=== PATIENT | male | born 1990 | race Caucasian/White ===

== ENCOUNTER → 2017-06-10 | Outpatient (CLI) | payer OTHER ==
[~2017-06-10] MED LIST: Naprosyn500 MG PO; OXYACE5T PO
[2017-06-10 12:03] LABS: Creatinine, Urine Random 90.8 mg/dL (27.00-270.00)
== END | disposition home or self-care (01) ==
LOC: OLS 10:12
PROVIDERS: Internal Medicine
DX: N19 Unspecified kidney failure (principal)
CPT/HCPCS: 82570; 84156

== ENCOUNTER → 2017-09-19 | Outpatient (CLI) | payer OTHER ==
[2017-09-19 13:00] LABS: Creatinine Urine 71.9 mg/dL (27.00-270.00); Protein, Urine Quantitative 83.4 mg/dL (0.0-11.9)
== END ==
LOC: LAB 12:31
PROVIDERS: Internal Medicine
DX: N18.2 Chronic kidney disease, stage 2 (mild) (principal)
CPT/HCPCS: 81050; 82570; 84156

== ENCOUNTER 2017-12-17 08:21 | Day surgery (SDC) | payer BC ==
[2017-12-17 09:58] LABS: Performing Lab SYMBIODX; Test Name KIDNEY BIIPOSY
== END 2017-12-17 11:34 | disposition home or self-care (01) ==
LOC: CT 08:21
PROVIDERS: Internal Medicine; Radiology Diagnostic Radiology
PROC: 0TB13ZX Excision of Left Kidney, Percutaneous Approach, Diagnostic (ICD-10-PCS; principal; 2017-12-17 10:00)
DX: R80.8 Other proteinuria (principal); I12.9 Hypertensive chronic kidney disease with stage 1 through stage 4 chronic kidney disease, or unspecified chronic kidney disease; N18.9 Chronic kidney disease, unspecified; N17.0 Acute kidney failure with tubular necrosis; E78.5 Hyperlipidemia, unspecified; E66.01 Morbid (severe) obesity due to excess calories; E55.9 Vitamin D deficiency, unspecified; Z79.899 Other long term (current) drug therapy; Z87.891 Personal history of nicotine dependence; Z68.39 Body mass index [BMI] 39.0-39.9, adult
CPT/HCPCS: 50200; 77012; 88329

== ENCOUNTER 2017-12-26 14:03 | Emergency (ER) | payer BC ==
[~2017-12-26] VITALS: Ht 185.4 cm; Wt 140.6 kg
== END 2017-12-26 14:41 | disposition home or self-care (01) ==
LOC: ER 14:03
DX: S60.222A Contusion of left hand, initial encounter (principal); W23.0XXA Caught, crushed, jammed, or pinched between moving objects, initial encounter; E78.00 Pure hypercholesterolemia, unspecified; F17.200 Nicotine dependence, unspecified, uncomplicated
CPT/HCPCS: 73130; 99283-25

== ENCOUNTER 2019-04-16 14:39 | Emergency (ER) | payer BC, OTHER ==
[~2019-04-16] VITALS: Ht 185.4 cm; Wt 130.6 kg
[2019-04-16 15:21] LABS: BASOPHILS ABSOLUTE AUTO 0.02 K/mm3 (0.00-0.23); BASOPHILS PERCENT AUTO 0 % (0-2); EOSINOPHILS ABSOLUTE AUTO 0.13 K/mm3 (0.00-0.68); EOSINOPHILS PERCENT AUTO 1 % (0-6); Hematocrit 46.8 % (37.0-53.0); Hemoglobin 15.2 g/dL (13.5-17.5); IMMATURE GRAN ABSOLUTE AUTO 0.03 K/mm3 (0.00-0.10); IMMATURE GRAN PERCENT AUTO 0 % (0-1); LYMPHOCYTES ABSOLUTE AUTO 1.75 K/mm3 (0.84-5.20); LYMPHOCYTES PERCENT AUTO 19 % (21-46); MONOCYTES ABSOLUTE AUTO 0.71 K/mm3 (0.16-1.47); MONOCYTES PERCENT AUTO 8 % (4-13); Mean Corpuscular HGB 27.4 pg (26.0-34.0); Mean Corpuscular HGB Conc 32.5 g/dL (31.5-36.5); Mean Corpuscular Volume 85 fL (80-100); Mean Platelet Volume 9.8 fL (9.1-12.4); NEUTROPHILS ABSOLUTE AUTO 6.39 K/mm3 (1.96-9.15); NEUTROPHILS PERCENT AUTO 71 % (41-73); Platelet Count 314 K/mm3 (150-400); RDW Coefficient Variation 14.4 % (11.7-14.2); RDW Standard Deviation 44.6 fL (35.1-46.3); Red Blood Cell Count 5.54 M/mm3 (4.30-5.90); White Blood Cell Count 9.03 K/mm3 (4.00-11.30)
[2019-04-16 15:46] LABS: Alanine Aminotransfer (ALT/SGP 41 U/L (12-78); Albumin, Blood 3.3 g/dL (3.4-5.0); Albumin/Globulin Ratio 0.7 (0.8-1.8); Alk Phos 79 U/L (50-136); Anion Gap 10 mmol/L (6-16); Aspartate Aminotrans (AST/SGOT 30 U/L (12-37); Bilirubin, Total 0.4 mg/dL (0.1-1.0); Blood Urea Nitrogen 20 mg/dL (8-24); Bun/Creatinine Ratio 18.9 (12.0-20.0); CO2, Blood 23 mmol/L (21-32); Calcium, Blood 9.1 mg/dL (8.5-10.1); Chloride, Blood 108 mmol/L (98-108); Creatinine, Blood 1.06 mg/dL (0.60-1.20); Globulin, Blood 4.5 g/dL (2.2-4.0); Glomerular Filtration Rate >60 (60-); Glucose, Blood 94 mg/dL (70-99); Potassium, Blood 4.5 mmol/L (3.5-5.5); Sodium, Blood 141 mmol/L (136-145); Total Protein, Blood 7.8 g/dL (6.4-8.2)
== END 2019-04-16 18:06 | disposition home or self-care (01) ==
LOC: ER 14:39
PROVIDERS: Physician Assistant
DX: M10.9 Gout, unspecified (principal); I10 Essential (primary) hypertension; F17.200 Nicotine dependence, unspecified, uncomplicated; Z88.6 Allergy status to analgesic agent
CPT/HCPCS: 20605; 36415; 80053; 85025; 87070; 87075; 87205; 99283-25; A9270

== ENCOUNTER 2021-03-26 09:05 | Emergency (ER) | payer BC ==
[~2021-03-26] VITALS: Ht 185.4 cm; Wt 142.4 kg
[2021-03-26] MEDS ORDERED: ROSUVASTATIN CA20 MG PO (09:17)
[2021-03-26] MEDS ORDERED: Monodox100 MG PO (09:17)
[2021-03-26] MEDS ORDERED: CEPH500 PO (09:17)
[2021-03-26] MEDS ORDERED: TELMISARTAN80 MG PO (09:18)
[2021-03-26] MEDS ORDERED: AMLODIPINE BESY10 MG PO (09:18)
[2021-03-26] MEDS ORDERED: METOPROLOL SUCC25 MG PO (09:18)
[2021-03-26 09:46] LABS: BASOPHILS ABSOLUTE AUTO 0.03 K/mm3 (0.00-0.23); BASOPHILS PERCENT AUTO 0 % (0-2); EOSINOPHILS ABSOLUTE AUTO 0.07 K/mm3 (0.00-0.68); EOSINOPHILS PERCENT AUTO 1 % (0-6); Hematocrit 44.6 % (37.0-53.0); Hemoglobin 14.7 g/dL (13.5-17.5); IMMATURE GRAN ABSOLUTE AUTO 0.05 K/mm3 (0.00-0.10); IMMATURE GRAN PERCENT AUTO 0 % (0-1); LYMPHOCYTES ABSOLUTE AUTO 1.38 K/mm3 (0.84-5.20); LYMPHOCYTES PERCENT AUTO 11 % (21-46); MONOCYTES PERCENT AUTO 11 % (4-13); Mean Corpuscular HGB 27.2 pg (26.0-34.0); Mean Corpuscular Volume 83 fL (80-100); Mean Platelet Volume 9.4 fL (9.1-12.4); NEUTROPHILS ABSOLUTE AUTO 9.57 K/mm3 (1.96-9.15); NEUTROPHILS PERCENT AUTO 77 % (41-73); Platelet Count 407 K/mm3 (150-400); RDW Coefficient Variation 14.5 % (11.7-14.2); RDW Standard Deviation 43.8 fL (35.1-46.3)
[2021-03-26 10:10] LABS: Uric Acid, Blood 9.7 mg/dL (3.5-7.2)
[2021-03-26 10:21] LABS: Bilirubin, Total 1.4 mg/dL (0.1-1.0); Bun/Creatinine Ratio 21.2 (12.0-20.0); Calcium, Blood 10.1 mg/dL (8.5-10.1); Creatinine, Blood 1.56 mg/dL (0.60-1.20); Total Protein, Blood 8.6 g/dL (6.4-8.2)
[2021-03-26 10:22] LABS: Albumin, Blood 2.5 g/dL (3.4-5.0); Albumin/Globulin Ratio 0.4 (0.8-1.8); Globulin, Blood 6.1 g/dL (2.2-4.0)
[2021-03-26] MEDS ORDERED: METPRE4DP PO (10:49)
[2021-03-26] MEDS ORDERED: OXYC5 PO (10:49)
== END 2021-03-26 11:14 | disposition home or self-care (01) ==
LOC: ER 09:05
PROVIDERS: Emergency Medicine
DX: M10.9 Gout, unspecified (principal); F17.200 Nicotine dependence, unspecified, uncomplicated; I10 Essential (primary) hypertension; E78.00 Pure hypercholesterolemia, unspecified; Z88.6 Allergy status to analgesic agent; Z79.899 Other long term (current) drug therapy
CPT/HCPCS: 80053; 84550; 85025; J1100; J1170; J2405

== ENCOUNTER 2021-04-09 10:02 | Inpatient (IN) | payer BC ==
[~2021-04-09] VITALS: Ht 185.4 cm; Wt 133.0 kg
[~2021-04-09 10:02] MED LIST changes: +AMLODIPINE BESY10 MG PO; +CEPH500 PO; +METOPROLOL SUCC25 MG PO; +METPRE4DP PO; +Monodox100 MG PO; +OXYC5 PO; +ROSUVASTATIN CA20 MG PO; +TELMISARTAN80 MG PO
[2021-04-09 12:38] LABS: BASOPHILS ABSOLUTE AUTO 0.03 K/mm3 (0.00-0.23); BASOPHILS PERCENT AUTO 0 % (0-2); EOSINOPHILS ABSOLUTE AUTO 0.02 K/mm3 (0.00-0.68); EOSINOPHILS PERCENT AUTO 0 % (0-6); Hematocrit 46.6 % (37.0-53.0); Hemoglobin 15.1 g/dL (13.5-17.5); IMMATURE GRAN ABSOLUTE AUTO 0.09 K/mm3 (0.00-0.10); IMMATURE GRAN PERCENT AUTO 1 % (0-1); LYMPHOCYTES ABSOLUTE AUTO 1.35 K/mm3 (0.84-5.20); LYMPHOCYTES PERCENT AUTO 8 % (21-46); MONOCYTES ABSOLUTE AUTO 1.51 K/mm3 (0.16-1.47); MONOCYTES PERCENT AUTO 9 % (4-13); Mean Corpuscular HGB 27.1 pg (26.0-34.0); Mean Corpuscular HGB Conc 32.4 g/dL (31.5-36.5); Mean Corpuscular Volume 84 fL (80-100); NEUTROPHILS ABSOLUTE AUTO 13.93 K/mm3 (1.96-9.15); NEUTROPHILS PERCENT AUTO 82 % (41-73); Platelet Count 335 K/mm3 (150-400); RDW Standard Deviation 42.8 fL (35.1-46.3); Red Blood Cell Count 5.57 M/mm3 (4.30-5.90); White Blood Cell Count 16.93 K/mm3 (4.00-11.30)
[2021-04-09 13:09] LABS: Alanine Aminotransfer (ALT/SGP 46 U/L (12-78); Albumin, Blood 2.9 g/dL (3.4-5.0); Albumin/Globulin Ratio 0.5 (0.8-1.8); Alk Phos 111 U/L (50-136); Anion Gap 7 mmol/L (6-16); Aspartate Aminotrans (AST/SGOT 16 U/L (12-37); Bilirubin, Total 1.7 mg/dL (0.1-1.0); Blood Urea Nitrogen 17 mg/dL (8-24); CO2, Blood 25 mmol/L (21-32); Calcium, Blood 9.8 mg/dL (8.5-10.1); Chloride, Blood 101 mmol/L (98-108); Creatinine, Blood 1.42 mg/dL (0.60-1.20); Globulin, Blood 5.5 g/dL (2.2-4.0); Glomerular Filtration Rate 57 (60-); Glucose, Blood 117 mg/dL (70-99); Potassium, Blood 4.4 mmol/L (3.5-5.5); Sodium, Blood 133 mmol/L (136-145); Total Protein, Blood 8.4 g/dL (6.4-8.2)
[2021-04-09 13:32] LABS: C-REACTIVE PROTEIN, EXT RANGE >19.000 mg/dL (0.000-0.300)
[2021-04-09 14:10] LABS: Glucose, Body Fluid 32 mg/dL; Protein, Body Fluid 5.5 g/dL
[2021-04-09 14:20] LABS: BODY FLUID RBC 0.002 M/mm3 (0-0)
[2021-04-09 15:13] LABS: RBC Count, Synovial Fluid 2000 /mm3 (0-0)
[2021-04-09 15:14] LABS: Appearance, Synovial Fluid Cloudy (Clear); Color, Synovial Fluid Yellow (None-P Yel); WBC Count, Synovial Fluid 41830 /mm3 (0-180)
[2021-04-09 16:17] LABS: Lymphs, Synovial Fluid 1 % (0-15); Monocytes/Macrophages, Synovia 6 % (0-65); Neutrophils, Synovial Fluid 93 % (0-24)
[2021-04-09 16:28] LABS: Body Fluid Crystals POS (NEGATIVE)
--- NOTE | 2021-04-09 20:57 | NUR ---
transfer report from [employer] [facility]ral on 31 year old Male being admitted with LT Knee septic joint. Tapped in ER for 35 ml fluids with synovial fluid analysis in progress. Remote hx of Strep B Strep C . Gout & hypertension hx asked for recheck of vital signs due to elevated pulse & BP on presentation to ER. Await admission, consulted by ortho DR Thomas who plans I & D LT knee. HX of 2 previous drainage of lt knee reported. Covid 19 swab pending per preprocedure routine.
[2021-04-09 22:03] LABS: Influenza A, PCR NEGATIVE (NEGATIVE); Influenza B, PCR NEGATIVE (NEGATIVE); Resp Syncytial Virus, PCR NEGATIVE (NEGATIVE); SARS-Cov-2 (COVID-19) PCR, MMC NEGATIVE (NEGATIVE)
[2021-04-09] MEDS ORDERED: VITAMIN D5000 UNIT PO (22:28)
[2021-04-09] MEDS ORDERED: TELM80 PO (22:54)
--- NOTE | 2021-04-09 23:41 | NUR ---
dr lewis CALLED pt HAS TEMPORAL T 101.2 ORAL 100.2 TACHYCARDIA 127 P & ELEVATED bp. pt HAD NO ORDERS FOR TYLENOL OR HOME ANTIHYPERTENSIVES .DR yun Solis SAYS ORDER TYL & HOME OXCODONE & HOME RX STARTED 2 HOME MEDS TYL & OXYCODONE 5 MG FOR PAIN LT LE 11/10. bLOOD CULTURES X 2 DRAN FOR pt WITH ELEVATED t WITH SEPTIC LEFT KNEE. dr Baldwin CONSULTED IN er FOR ORTHO . PT says he is to be NPO at midnight for surgical intervention. Rocephin given in ER & vanco just finuishing infusion. Med floor NS bolus pending finishing vanco.
[2021-04-10] MEDS ORDERED: ROSUVASTATIN CA10 MG (03:23)
--- NOTE | 2021-04-10 03:37 | NUR ---
PT admitted with septic lt knee temporal temp 101.2, pulse 127 BP 153/93 on presentation from ER. HAd rocephin in ER & ER sent vancomycin with PT at 2116. PT home meds reviewed & DR Weinstein shank boner oks home med use tylenol 650 mg po q 4 hours & oxcodone 5 mg. Unable to order telmisartan nonformulary rx & cholesterol lowering rx. Pharmacy [facility] gives nonformulary pharmacy subsitute & clears choles. lowering rx so will start those 2 in AM. 1 l IV fluid bolus completed & vancomyicin per pharmacy. PT see's DR Little for ongoing renal issues & also has elevated bilirubin 1.7. NSAIDS adversly effect renal function. PT npo at midnight for lt Knee surgical intervention. LT knee tapped in ER for 35 ml & fluid analysis in process. Blood cultures x 2 drawn. Medicated for lt leg knee pain with 650 mg tylenol & [address] Tomlin to see PT around midnight oks home med use theraputic substitution from pharmacy.
[2021-04-10 05:05] LABS: BASOPHILS ABSOLUTE AUTO 0.02 K/mm3 (0.00-0.23); BASOPHILS PERCENT AUTO 0 % (0-2); EOSINOPHILS ABSOLUTE AUTO 0.02 K/mm3 (0.00-0.68); EOSINOPHILS PERCENT AUTO 0 % (0-6); Hematocrit 42.4 % (37.0-53.0); Hemoglobin 13.6 g/dL (13.5-17.5); IMMATURE GRAN ABSOLUTE AUTO 0.08 K/mm3 (0.00-0.10); IMMATURE GRAN PERCENT AUTO 1 % (0-1); LYMPHOCYTES ABSOLUTE AUTO 0.83 K/mm3 (0.84-5.20); LYMPHOCYTES PERCENT AUTO 6 % (21-46); MONOCYTES ABSOLUTE AUTO 0.56 K/mm3 (0.16-1.47); MONOCYTES PERCENT AUTO 4 % (4-13); Mean Corpuscular HGB 27.1 pg (26.0-34.0); Mean Corpuscular HGB Conc 32.1 g/dL (31.5-36.5); Mean Corpuscular Volume 85 fL (80-100); Mean Platelet Volume 9.4 fL (9.1-12.4); NEUTROPHILS ABSOLUTE AUTO 12.76 K/mm3 (1.96-9.15); NEUTROPHILS PERCENT AUTO 90 % (41-73); Platelet Count 281 K/mm3 (150-400); RDW Coefficient Variation 14.2 % (11.7-14.2); RDW Standard Deviation 43.8 fL (35.1-46.3); Red Blood Cell Count 5.02 M/mm3 (4.30-5.90); White Blood Cell Count 14.27 K/mm3 (4.00-11.30)
[2021-04-10 06:15] LABS: Albumin, Blood 2.5 g/dL (3.4-5.0); Albumin/Globulin Ratio 0.6 (0.8-1.8); Bilirubin, Total 0.9 mg/dL (0.1-1.0); Bun/Creatinine Ratio 13.9 (12.0-20.0); Calcium, Blood 8.8 mg/dL (8.5-10.1); Creatinine, Blood 1.44 mg/dL (0.60-1.20); Globulin, Blood 4.1 g/dL (2.2-4.0); Potassium, Blood 4.9 mmol/L (3.5-5.5); Total Protein, Blood 6.6 g/dL (6.4-8.2)
--- NOTE | 2021-04-10 14:07 | NUR ---
THE PATIENT WAS BROUGHT TO DAY SURGERY FOR HIS PROCEDURE. Ambulatory in Day Surgery Surgical site prepped with 2% Chlorhexidine cloth wipe. Lungs clear T/O to Auscultation. History, Chart, Medications and Allergies reviewed before start of procedure.Patient confirms NPO status and agrees with scheduled surgery. Pre-Op teaching done. Pt verbalizes understanding.
[2021-04-10 14:15] LABS: Anion Gap 8 mmol/L (6-16); Blood Urea Nitrogen 20 mg/dL (8-24); Bun/Creatinine Ratio 16.8 (12.0-20.0); CO2, Blood 25 mmol/L (21-32); Calcium, Blood 9.1 mg/dL (8.5-10.1); Chloride, Blood 109 mmol/L (98-108); Creatinine, Blood 1.19 mg/dL (0.60-1.20); Glomerular Filtration Rate >60 (60-); Glucose, Blood 144 mg/dL (70-99); Potassium, Blood 4.5 mmol/L (3.5-5.5); Sodium, Blood 142 mmol/L (136-145)
--- NOTE | 2021-04-10 18:21 | NUR ---
SHIFT SUMMARY PT SEEN BY DR. LANDA, ORTHO, THIS AFTERNOON AND WENT TO OR FOR I AND D. RETURNED WITH BEKAH WRAP APPLIED TO KNEE. REPORTS SOME BURNING TO AREA BUT SAID HE DIDN'T WANT PAIN MEDS AT THE TIME. AWAKE AND ALERT ON RETURN FROM SURGERY REPORTING BEING VERY HUNGRY. SANDWICH GIVEN AND EATEN WITH NO ISSUE. POSITIVE ATTITUDE THROUGH DAY.
[2021-04-10 21:22] LABS: Vancomycin, Trough 19.7 ug/mL (5.0-10.0)
--- NOTE | 2021-04-11 05:31 | NUR ---
PT IS A/OX4. PT UNDERWENT AN I/D ON 04/10. LF KNEE IN BEKAH WRAP. AND NO C/O OF PAIN. WAITING ON CULTURE FROM KNEE ASPIRATION AND PT WILL DC PENDING RESULTS. NO GROWTH 1ST DAY. PT DID NOT GET OOB ON NOC SHIFT, BUT USES THE URINAL APPROPRIATELY. NEW IV IN HIS RT FA 04/10 NOC SHIFT.
[2021-04-11 07:21] LABS: Anion Gap 6 mmol/L (6-16); Blood Urea Nitrogen 25 mg/dL (8-24); Bun/Creatinine Ratio 21.6 (12.0-20.0); CO2, Blood 25 mmol/L (21-32); Calcium, Blood 8.8 mg/dL (8.5-10.1); Chloride, Blood 113 mmol/L (98-108); Creatinine, Blood 1.16 mg/dL (0.60-1.20); Glomerular Filtration Rate >60 (60-); Glucose, Blood 147 mg/dL (70-99); Sodium, Blood 144 mmol/L (136-145)
[2021-04-11] MEDS ORDERED: PRED20 PO (12:19)
[2021-04-11] MEDS ORDERED: ALLO100 PO (12:19)
[2021-04-11 12:43] LABS: Vancomycin, Trough 12.7 ug/mL (5.0-10.0)
--- NOTE | 2021-04-11 14:56 | NUR ---
DISCHARGE PT DISCHARGED TO HOME. IV REMOVED AND DISCHARGE PAPERWORK/EDUCATIONS GONE THROUGH WITH PT PRIOR TO DISCHARGE. [facility]AL BELONGINGS.
--- NOTE | 2021-04-12 07:46 | NUR ---
04/12/21 0746 Jessica Post VERIFICATIONS: EDIT CHART.
== END 2021-04-11 14:50 | disposition home or self-care (01) | DRG 549 ==
LOC: ER 10:02 → MEDS 19:50
PROVIDERS: Emergency Medicine; Internal Medicine; Physician Assistant; Student in an Organized Health Care Education/Training Program; ADMIT Orthopaedic Surgery
PROC: 0S9D3ZX Drainage of Left Knee Joint, Percutaneous Approach, Diagnostic (ICD-10-PCS; principal; 2021-04-09)
PROC: 0S9D4ZZ Drainage of Left Knee Joint, Percutaneous Endoscopic Approach (ICD-10-PCS; 2021-04-10)
PROC: 3E02340 Introduction of Influenza Vaccine into Muscle, Percutaneous Approach (ICD-10-PCS; 2021-04-10)
DX: M00.9 Pyogenic arthritis, unspecified (principal); N17.9 Acute kidney failure, unspecified; Z20.822 Contact with and (suspected) exposure to COVID-19; R73.9 Hyperglycemia, unspecified; F10.10 Alcohol abuse, uncomplicated; M10.9 Gout, unspecified; I10 Essential (primary) hypertension; E78.5 Hyperlipidemia, unspecified; F17.210 Nicotine dependence, cigarettes, uncomplicated; Z23 Encounter for immunization; Z98.890 Other specified postprocedural states; Z88.6 Allergy status to analgesic agent
CPT/HCPCS: 0241U; 20610; 36415; 73562-LT; 80048; 80053; 80202; 82945; 83036; 84157; 85025; 85651; 86140; 87040; 87070; 87075; 87205; 89051; 89060; 90686; 94760; 96365; 99283-25; A9270; G0008; J0171; J0696; J1100; J2001; J2250; J2405; J2704; J2930; J3010; J3370; J7030; J7050; J7120

== ENCOUNTER → 2024-07-21 | Outpatient (CLI) | payer OTHER ==
[~2024-07-21] MED LIST changes: +ALLO100 PO; +PRED20 PO; +ROSUVASTATIN CA10 MG; +TELM80 PO; +VITAMIN D5000 UNIT PO
== END ==
LOC: LAB 13:30 → LAB SHORT 13:30
DX: R30.0 Dysuria (principal)
CPT/HCPCS: 87086

== ENCOUNTER 2024-12-02 12:44 | Emergency (ER) | payer OTHER ==
[~2024-12-02] VITALS: Ht 185.4 cm; Wt 124.7 kg
[2024-12-02 13:55] VITALS: BP 117/87
[2024-12-02 16:10] LABS: BASOPHILS ABSOLUTE AUTO 0.04 K/mm3 (0.00-0.23); BASOPHILS PERCENT AUTO 0 % (0-2); EOSINOPHILS ABSOLUTE AUTO 0.06 K/mm3 (0.00-0.68); EOSINOPHILS PERCENT AUTO 1 % (0-6); Hematocrit 50.1 % (37.0-53.0); Hemoglobin 16.8 g/dL (13.5-17.5); IMMATURE GRAN ABSOLUTE AUTO 0.04 K/mm3 (0.00-0.10); IMMATURE GRAN PERCENT AUTO 0 % (0-1); LYMPHOCYTES ABSOLUTE AUTO 1.42 K/mm3 (0.84-5.20); LYMPHOCYTES PERCENT AUTO 12 % (21-46); MONOCYTES ABSOLUTE AUTO 1.11 K/mm3 (0.16-1.47); MONOCYTES PERCENT AUTO 9 % (4-13); Mean Corpuscular HGB Conc 33.5 g/dL (31.5-36.5); Mean Corpuscular Volume 83 fL (80-100); NEUTROPHILS ABSOLUTE AUTO 9.37 K/mm3 (1.96-9.15); NEUTROPHILS PERCENT AUTO 78 % (41-73); NRBC ABSOLUTE 0.00 K/mm3 (0.00-0.02); NRBC Auto 0.0 /100 WBC (0.0-0.2); Platelet Count 248 K/mm3 (150-400); RDW Coefficient Variation 13.3 % (11.7-14.2); RDW Standard Deviation 40.4 fL (35.1-46.3)
[2024-12-02 16:25] LABS: Source, Urine Clean Catch
[2024-12-02 16:32] LABS: Bilirubin, Urine Neg (Neg); Color, Urine Amber (P-Yellow); Glucose Qualitative, Urine Neg (Neg); Ketones, Urine Neg (Neg); Leukocyte Esterase, Urine Neg (Neg); Protein, Urine 4+ (Neg); Specific Gravity, Urine 1.015 (1.003-1.022); Urobilinogen, Urine NORM (Normal)
[2024-12-02 16:39] LABS: Alanine Aminotransfer (ALT/SGP 27.0 U/L (12-78); Albumin, Blood 2.9 g/dL (3.4-5.0); Albumin/Globulin Ratio 0.6 (0.8-1.8); Anion Gap 6.0 mmol/L (3-11); Aspartate Aminotrans (AST/SGOT 15.0 U/L (12-37); Bilirubin, Total 1.5 mg/dL (0.1-1.0); Blood Urea Nitrogen 19.0 mg/dL (8-24); CO2, Blood 26.0 mmol/L (21-32); Calcium, Blood 9.3 mg/dL (8.5-10.1); Chloride, Blood 102.0 mmol/L (98-108); Creatinine, Blood 1.39 mg/dL (0.60-1.20); Globulin, Blood 4.5 g/dL (2.2-4.0); Glucose, Blood 98.0 mg/dL (70-99); Potassium, Blood 4.5 mmol/L (3.5-5.5); Sodium, Blood 129.0 mmol/L (136-145); Total Protein, Blood 7.4 g/dL (6.4-8.2); Uric Acid, Blood 7.2 mg/dL (3.5-7.2)
[2024-12-02 16:55] LABS: Red Blood Cells, Urine 0-2 /hpf (0-2); White Blood Cells, Urine 0-2 /hpf (0-5)
[2024-12-02] MEDS ORDERED: NS 1,000 ML IV SCH (17:00)
[2024-12-02] MEDS ORDERED: OxyCODONE 5 mg/Acetamin 325 mg TABLET PO ONE (17:00)
[2024-12-02] MEDS ORDERED: Ketorolac Tromethamine 30mg Vial IV ONE (17:15)
[2024-12-02] MEDS ORDERED: RX Prepack 6 Tabs Oxycodone 5mg UD ONE (17:15)
[2024-12-02] MEDS ORDERED: PRED20 PO (18:03)
== END 2024-12-02 18:19 | disposition home or self-care (01) ==
LOC: ER 12:44
PROVIDERS: Student in an Organized Health Care Education/Training Program
DX: M10.9 Gout, unspecified (principal); E78.00 Pure hypercholesterolemia, unspecified; I10 Essential (primary) hypertension; F17.200 Nicotine dependence, unspecified, uncomplicated; Z79.52 Long term (current) use of systemic steroids; Z79.899 Other long term (current) drug therapy; Z88.6 Allergy status to analgesic agent
CPT/HCPCS: 73560-LT; 80053; 81001; 84550; 84560; 85025; 87086; 96361; 96374; 99283-25; A9270; J1885; J7030; J7512

== ENCOUNTER 2024-12-23 01:17 | Emergency (ER) | payer OTHER ==
[~2024-12-23] VITALS: Ht 185.4 cm; Wt 122.5 kg
[2024-12-23] MEDS ORDERED: Colchicine 0.6 MG TAB PO ONE ×2 (02:50→02:55)
[2024-12-23] MEDS ORDERED: Ketorolac Tromethamine 30mg Vial IM ONE (02:50)
[2024-12-23] MEDS ORDERED: COLCHICINE0.6 MG PO (02:55)
[2024-12-23 03:02] VITALS: BP 127/80
== END 2024-12-23 03:06 | disposition home or self-care (01) ==
LOC: ER 01:17
DX: M10.9 Gout, unspecified (principal); Z76.0 Encounter for issue of repeat prescription; I10 Essential (primary) hypertension; Z59.89 Other problems related to housing and economic circumstances; Z68.35 Body mass index [BMI] 35.0-35.9, adult; F17.200 Nicotine dependence, unspecified, uncomplicated
CPT/HCPCS: 73562-LT; 96372; 99283-25; A9270; J1885

== ENCOUNTER 2025-03-29 21:26 | Emergency (ER) | payer OTHER ==
[~2025-03-29] VITALS: Ht 185.4 cm; Wt 129.3 kg
[~2025-03-29 21:26] MED LIST changes: +COLCHICINE0.6 MG PO
[2025-03-29 21:31] VITALS: BP 114/78
[2025-03-29 22:09] LABS: BASOPHILS ABSOLUTE AUTO 0.06 K/mm3 (0.00-0.23); BASOPHILS PERCENT AUTO 0 % (0-2); EOSINOPHILS ABSOLUTE AUTO 0.13 K/mm3 (0.00-0.68); EOSINOPHILS PERCENT AUTO 1 % (0-6); Hematocrit 43.3 % (37.0-53.0); Hemoglobin 14.5 g/dL (13.5-17.5); IMMATURE GRAN ABSOLUTE AUTO 0.28 K/mm3 (0.00-0.10); IMMATURE GRAN PERCENT AUTO 2 % (0-1); LYMPHOCYTES ABSOLUTE AUTO 1.86 K/mm3 (0.84-5.20); LYMPHOCYTES PERCENT AUTO 12 % (21-46); MONOCYTES ABSOLUTE AUTO 0.72 K/mm3 (0.16-1.47); MONOCYTES PERCENT AUTO 5 % (4-13); Mean Corpuscular HGB Conc 33.5 g/dL (31.5-36.5); Mean Corpuscular Volume 80 fL (80-100); NEUTROPHILS ABSOLUTE AUTO 12.23 K/mm3 (1.96-9.15); NEUTROPHILS PERCENT AUTO 80 % (41-73); NRBC ABSOLUTE 0.00 K/mm3 (0.00-0.02); NRBC Auto 0.0 /100 WBC (0.0-0.2); Platelet Count 352 K/mm3 (150-400); RDW Coefficient Variation 14.3 % (11.7-14.2); RDW Standard Deviation 41.1 fL (35.1-46.3)
[2025-03-29 22:37] LABS: Uric Acid, Blood 7.7 mg/dL (3.5-7.2)
[2025-03-29 22:38] LABS: Alanine Aminotransfer (ALT/SGP 52.0 U/L (12-78); Albumin, Blood 3.2 g/dL (3.4-5.0); Albumin/Globulin Ratio 0.8 (0.8-1.8); Anion Gap 8.0 mmol/L (3-11); Aspartate Aminotrans (AST/SGOT 21.0 U/L (12-37); Bilirubin, Total 0.9 mg/dL (0.1-1.0); Blood Urea Nitrogen 20.0 mg/dL (8-24); CO2, Blood 25.0 mmol/L (21-32); Calcium, Blood 9.1 mg/dL (8.5-10.1); Chloride, Blood 105.0 mmol/L (98-108); Creatinine, Blood 1.44 mg/dL (0.60-1.20); Globulin, Blood 4.1 g/dL (2.2-4.0); Glucose, Blood 184.0 mg/dL (70-99); Potassium, Blood 4.0 mmol/L (3.5-5.5); Sodium, Blood 134.0 mmol/L (136-145); Total Protein, Blood 7.3 g/dL (6.4-8.2)
[2025-03-29 23:44] LABS: C-REACTIVE PROTEIN, EXT RANGE 4.1 mg/dL (0.000-0.300)
[2025-03-29] MEDS ORDERED: Morphine Sulfate 4 MG/1 ML Injection IV ONE (23:45)
[2025-03-30 00:59] LABS: BODY FLUID RBC 0.005 M/mm3 (0-0)
[2025-03-30 01:01] LABS: WBC Count, Synovial Fluid 2596 /mm3 (0-180)
[2025-03-30 01:02] LABS: RBC Count, Synovial Fluid 5000 /mm3 (0-0)
[2025-03-30 01:04] LABS: Appearance, Synovial Fluid Hazy (Clear); Color, Synovial Fluid Yellow (None-P Yel); Monocytes/Macrophages, Synovia 44 % (0-65); Neutrophils, Synovial Fluid 56 % (0-24)
[2025-03-30] MEDS ORDERED: ACET500 PO (01:05)
[2025-03-30] MEDS ORDERED: PRED20 PO (01:05)
== END 2025-03-30 01:15 | disposition home or self-care (01) ==
LOC: ER 21:26
PROVIDERS: Emergency Medicine; Student in an Organized Health Care Education/Training Program
DX: M11.272 Other chondrocalcinosis, left ankle and foot (principal); I10 Essential (primary) hypertension; F17.200 Nicotine dependence, unspecified, uncomplicated; E78.00 Pure hypercholesterolemia, unspecified; Z79.52 Long term (current) use of systemic steroids; Z79.899 Other long term (current) drug therapy; Z88.6 Allergy status to analgesic agent
CPT/HCPCS: 20605; 73630; 80053; 84550; 85025; 85651; 86140; 87070; 87075; 87205; 89051; 89060; 96374; 99283-25; J2270; J7512